=== PATIENT | female | born 1940 | race Caucasian/White ===

== ENCOUNTER 2022-04-06 13:30 | Outpatient (RCR) | payer MEDICARE, BC, SELFPAY | END 2022-05-02 23:59 | disposition home or self-care (01) | LOC: CCIC 13:30 | PROVIDERS: PCP Family Medicine; Visit Provider Internal Medicine Hematology & Oncology | DX: C50.911 Malignant neoplasm of unspecified site of right female breast (principal); Z79.811 Long term (current) use of aromatase inhibitors | CPT/HCPCS: 99212; 99214; J0702 ==

== ENCOUNTER 2023-03-17 13:57 | Outpatient (RCR) | payer MEDICARE, BC, SELFPAY | END 2023-09-13 23:59 | disposition home or self-care (01) | LOC: CCIC 13:57 | PROVIDERS: PCP Family Medicine; Visit Provider Internal Medicine Hematology & Oncology | DX: C50.911 Malignant neoplasm of unspecified site of right female breast (principal); Z90.11 Acquired absence of right breast and nipple; Z79.811 Long term (current) use of aromatase inhibitors | CPT/HCPCS: 99212; 99213; 99214 ==

== ENCOUNTER 2023-04-11 09:38 | Emergency (ER) | payer MEDICARE, BC, SELFPAY ==
[2023-04-11 09:41] VITALS: BP 101/64; PULSE 78; RESP 16; TEMP 36.2; O2SAT 92; BMI 37.2
--- NOTE | 2023-04-11 10:23 | CRLHL7_ITS ---
For Patients: As a result of the Cures Act, medical imaging exams and procedure reports are released immediately into your electronic medical record. You may view this report before your referring provider. If you have questions, please contact your health care provider. INDICATION: PAIN AND REDNESS IN LEFT LEG COMPARISON: None. TECHNIQUE: A compression venous ultrasound exam was performed of the left lower extremity using dykes-scale imaging, color Doppler and spectral Doppler analysis. FINDINGS: Sonographic imaging of the left lower extremity demonstrates normal compressibility and color Doppler venous blood flow within the common femoral vein and deep femoral vein. Long segment hypoechoic occlusive clot present throughout the greater saphenous vein from the proximal thigh to the mid calf. Within the thigh, the femoral vein is patent and compressible. At a lower level, the popliteal and posterior tibial veins also show normal compressibility and color Doppler venous blood flow. Limited imaging of the contralateral groin demonstrates a normal spectral waveform and color Doppler venous blood flow within the right common femoral vein. IMPRESSION: No evidence of deep vein thrombosis within the left lower extremity. Long segment superficial thrombus involving the left greater saphenous vein from the proximal thigh to the mid calf. Dictated by Carlos Cisneros MD @ 04/11/2023 11:14:40 AM (Electronically Signed)
--- NOTE | 2023-04-11 10:43 | ED.GENADULT ---
HPI - General Adult General Time Seen by Provider: 10:20 Date Seen: 04/11/23 Chief complaint: Lower Extremity Swelling Stated complaint: left leg possible blood clot Time Seen by Provider: 04/11/23 10:07 Source: patient Mode of arrival: ambulatory Limitations: no limitations History of Present Illness HPI narrative: Patient is an 82-year-old female history of DVT is, hypertension presenting to the emergency department for pain to her left leg. Patient states 4 days ago she noticed a red swollen area to the medial aspect of her right knee. Next day she knows it got worse and 2 days ago it was penitentiary up the medial aspect of her left thigh. It has not changed since then. Is only tender to palpation. She has been walking without issues. States she has had a blood clot in the past and was concerned she had a another 1. Denies chest pain, shortness of breath, headache, fevers, chills, weakness, abdominal pain, numbness. Related Data Home Medications Medication Instructions Recorded Confirmed alendronate 70 mg tablet 70 mg PO QWEEK 04/06/22 04/11/23 aspirin 81 mg tablet,delayed 81 mg PO QDAY 04/06/22 04/11/23 release (Adult Low Dose Aspirin) calcium carbonate 600 mg-vitamin 2 cap PO DAILY 04/06/22 04/11/23 D3 25 mcg (1,000 unit) capsule cetirizine 10 mg tablet 10 mg PO QDAY PRN 04/06/22 04/11/23 dapagliflozin propanediol 10 mg 10 mg PO QAM 04/06/22 04/11/23 tablet (Farxiga) fluticasone furoate 50 1 inh inhalation Q24H PRN 04/06/22 04/11/23 mcg/actuation blister powder for inhalation furosemide 40 mg tablet 40 mg PO QAM 04/06/22 04/11/23 magnesium oxide 400 mg PO QDAY 04/06/22 04/11/23 metoprolol succinate 25 mg 25 mg PO BID 04/06/22 04/11/23 tablet,extended release 24 hr multivitamin 1 tab PO QAM 04/06/22 04/11/23 nitroglycerin 0.4 mg sublingual 0.4 mg sublingual Q5M PRN 04/06/22 04/11/23 tablet rosuvastatin 20 mg tablet 20 mg PO QDAY 04/06/22 04/11/23 sacubitril 49 mg-valsartan 51 mg 1 tab PO BID 04/06/22 03/17/23 tablet (Entresto) triamcinolone acetonide 0.5 % 1 applic topical BID PRN 04/06/22 03/17/23 topical cream zinc gluconate 50 mg tablet 50 mg PO 2XW 04/06/22 03/17/23 Previous Rx's Medication Instructions Recorded anastrozole 1 mg tablet 1 mg PO QDAY #90 tabs 10/11/22 cephalexin 500 mg capsule 500 mg PO QID #20 caps 04/11/23 rivaroxaban 10 mg tablet 10 mg PO DAILY #45 tabs 04/11/23 Allergies Allergy/AdvReac Type Severity Reaction Status Date / Time enviromental Allergy Mild Uncoded 04/06/22 13:47 tiramine Allergy Mild Uncoded 04/11/23 09:50 Fexofenadine AdvReac depression Uncoded 04/06/22 13:47 Review of Systems Status of ROS: Reports: 10 or more systems reviewed and unremarkable except as noted in History and below PFSH PFS Medical History Malignant neoplasm of female breast (~2012) ?C50.919 - Malignant neoplasm of unspecified site of unspecified female breast (ICD-10) Surgical History Status post chemotherapy ?Z92.21 - Personal history of antineoplastic chemotherapy (ICD-10) S/P radiation therapy ?Z92.3 - Personal history of irradiation (ICD-10) S/P right mastectomy ?Z90.11 - Acquired absence of right breast and nipple (ICD-10) Social History Smoking Status: Never smoker How often do you have a drink containing alcohol: 2-4 times a month AUDIT-C Alcohol total score: 2 Non-prescribed substance use: denies use Exam Narrative: Exam Narrative: Const: Well-nourished, Well-developed, in mild distress Eyes: PERRL, no conjunctival injection, and symmetrical lids ENMT: Atraumatic external nose and ears. Moist mucous membranes. Neck: Symmetric, trachea midline, No thyromegaly. CVS: RRR, No murmurs or gallops. Peripheral pulses 2+ and equal in all extremities RESP: Unlabored respiratory effort. Clear to auscultation bilaterally. GI: Nontender/Nondistended, No rebound or guarding. MSK:Extremities w/o deformity, Normal Active ROM Skin: Warm, Dry. There is a 5-6 cm long the erythema area going from the middle for medial left thigh down to just past the knee. Palpation of her vein shows ropey like consistency Neuro: Normal Muscle tone, No focal neurological deficits. Psych: Awake, Alert, & Oriented x3. Appropriate mood and affect. Const: Vital Signs, click to edit/add: Vital Signs - 24 hr 04/11/23 09:41 Temperature 97.1 F L Pulse Rate [Left P ulse Oximeter] 78 Respiratory Rate 16 Blood Pressure [Le ft Upper Arm] 101/64 Pulse Oximetry 92 Oxygen Delivery Me thod Room Air Course Vital Signs Vital signs: Initial Vital Signs Temperature 97.1 F L 04/11/23 09:41 Temperature Source Temporal Artery Scan 04/11/23 09:41 Pulse Rate 78 04/11/23 09:41 Respiratory Rate 16 04/11/23 09:41 Blood Pressure 101/64 04/11/23 09:41 Blood Pressure Mean 76 04/11/23 09:41 Blood Pressure Position Sitting 04/11/23 09:41 Pulse Oximetry 92 04/11/23 09:41 Oxygen Delivery Method Room Air 04/11/23 09:41 Vital Signs Temperature 97.1 F L 04/11/23 09:41 Pulse Rate 78 04/11/23 09:41 Respiratory Rate 16 04/11/23 09:41 Blood Pressure 101/64 04/11/23 09:41 Pulse Oximetry 92 04/11/23 09:41 Oxygen Delivery Method Room Air 04/11/23 09:41 Temperature 97.1 F L 04/11/23 09:41 Pulse Rate 78 04/11/23 09:41 Respiratory Rate 16 04/11/23 09:41 Blood Pressure 101/64 04/11/23 09:41 Pulse Oximetry 92 04/11/23 09:41 Oxygen Delivery Method Room Air 04/11/23 09:41 Medical Decision Making MDM Narrative Medical decision making narrative: Patient is an 82-year-old female presented to the emergency department for concern for a blood clot. She states she has been having the swelling to the medial aspect of her leg for the past 4 days but has not changed in 2 days. She is only has pain to palpation to it. No chest pain or shortness of breath. She has been ambulating without issues. I did do a bedside ultrasound showing a large superficial thrombophlebitis. I can also palpate thrombosed vein on my exam. We will do a formal lower extremity ultrasound to better evaluate it at this time. The results returned showing no signs of a deep venous thrombosis but there is a large superficial venous thrombosis in the greater saphenous vein going from proximal thigh to the mid calf. Due to the size and the proximity of it we will treat her with anticoagulation. She was given Lovenox apparent in the Emergency Department. We discharged her home with rivaroxaban. Since there is erythema over the area and warmth we will treat her with Keflex for associated cellulitis. Her vital signs are stable nose no signs of pulmonary embolism or systemic infection at this time. She will be discharged home. I informed her to have close follow-up with her primary care provider so they can continue to monitor it. She states she agrees with this plan and understands her diagnosis Differential Diagnosis Differential Diagnosis: DVT, cellulitis, superficial thrombophlebitis, hematoma Medical Records Medical records reviewed: Yes I reviewed the patient's medical records Imaging Data Venous US: Attestation: I have reviewed the pertinent imaging results. Discharge Plan Discharge Clinical Impression: Superficial phlebitis and thrombophlebitis of left leg Patient Disposition: Home, Self-Care Condition: Stable Instructions: Superficial Thrombophlebitis (ED) Additional Instructions: Follow-up the primary care provider as soon as possible to help the monitor your symptoms. Take the medications we prescribed as directed. Return for new or worsening symptoms. Prescriptions: New rivaroxaban 10 mg tablet 10 mg PO DAILY Qty: 45 0RF Rx Instructions: for 35 days cephalexin 500 mg capsule 500 mg PO QID Qty: 20 0RF No Action Entresto 49-51 mg tablet 1 tab PO BID alendronate 70 mg tablet 70 mg PO QWEEK aspirin [Adult Low Dose Aspirin] 81 mg tablet,delayed release (DR/EC) 81 mg PO QDAY Hold Instructions: stopped per calcium carbonate-vitamin D3 600 mg-25 mcg (1,000 unit) capsule 2 cap PO DAILY cetirizine 10 mg tablet 10 mg PO QDAY PRN fluticasone furoate 50 mcg/actuation blister with device 1 inh inhalation Q24H PRN magnesium oxide 400 mg magnesium tablet 400 mg PO QDAY multivitamin Tablet 1 tab PO QAM triamcinolone acetonide 0.5 % cream 1 applic topical BID PRN zinc gluconate 50 mg tablet 50 mg PO 2XW Farxiga 10 mg tablet 10 mg PO QAM furosemide 40 mg tablet 40 mg PO QAM metoprolol succinate 25 mg tablet extended release 24 hr 25 mg PO BID nitroglycerin 0.4 mg tablet, sublingual 0.4 mg sublingual Q5M PRN Rx Instructions: do not exceed 3 doses per episode rosuvastatin 20 mg tablet 20 mg PO QDAY anastrozole 1 mg tablet 1 mg PO QDAY Qty: 90 3RF Follow Up/Referrals: Claudia March MD [Primary Care Provider] - Stand Alone Forms: [facility] Info Instructions
[2023-04-11] MEDS: cephALEXin 500 MG CAPSULE PO (11:52)
[2023-04-11] MEDS: ENOXAPARIN 100 MG/ML INJ SUBCUT (11:53)
== END 2023-04-11 12:02 | disposition home or self-care (01) ==
PROVIDERS: Emergency Provider Student in an Organized Health Care Education/Training Program; PCP Family Medicine
DX: I80.02 Phlebitis and thrombophlebitis of superficial vessels of left lower extremity (principal)
CPT/HCPCS: 93971; 99283; 99284; A9270; J1650

== ENCOUNTER 2024-03-06 12:41 | Outpatient (CLI) | payer MEDICARE, BC, SELFPAY ==
--- OUTSIDE RECORDS SUMMARY | 2024-03-06 12:46 | XMS_ITS | Clinical Summary ---
Author Organization [employer] [facility] [employer] [facility] Address [place], [place] [address] Care Team Providers Care Medical Reception Specialist Name Role Phone Claudia March MD Primary Care Prov ider Teddy Fitzgerald MD Unavailable [facility], [facility] Unavailable Penny Berkowitz MD Unavailable [phone] Allergies Active Allergy Reactions Criticality Noted Date Comments Fexofenadine Other - Describe In Comment Field 11/21/2008 depression Adhesive Irritation At Patch Site Low 09/10/2021 Mentioned skin irritation with standard and sensitive electrode patches. Stated sensitive patches are worse. Medications Medication Sig Dispensed Refills Start Date End Date Status zpbcbzoy-kxk-wpynk acid-vit K 400-80 mcg cap Take 2 Tabs by mouth once daily. 0 04/16/2019 Active cholecalciferol (VITAMIN D-3) 2,000 unit capsule Take 1 capsule by mouth once daily. 0 04/16/2019 Active diphenhydrAMINE (BENADRYL) 25 mg capsule Take 1 capsule by mouth every 4 hours if needed. 0 04/16/2019 Active calcium carbonate (CALTRATE) 600 mg calcium (1,500 mg) tablet Take 1 tablet by mouth 2 times daily with meals. 180 tablet 3 06/10/2020 Active aspirin (ECOTRIN) 81 mg enteric coated tablet Take 81 mg by mouth once daily with a meal. Active blood-glucose meterIndications:T ype 2 diabetes mellitus without complication, without long-term current use of insulin (HC) As directed. Dispense meter, test strips, lancets covered by pt ins. E11.9 NIDDM type II - Test 2 times/day. Reason: New diabetes 1 Each 06/15/2021 Active loratadine (Claritin) 10 mg tablet Take 1 Tablet (10 mg) by mouth once daily. 0 07/20/2021 Active Magnesium Oxide 500 mg tab Take 500 mg by mouth once daily. 0 07/20/2021 Active triamcinolone (ARISTOCORT) 0.5 % ointmentIndication s:Rash Apply topically to affected area(s) 3 times daily. As needed 30 g 1 09/15/2021 Active anastrozole (ARIMIDEX) 1 mg tablet Take 1 Tablet (1 mg) by mouth once daily. 0 12/15/2021 Active diphenhydrAMINE-ac etaminophen 25-500 mg (Tylenol PM Extra Strength) 25-500 mg tablet Take 1 Tablet by mouth at bedtime if needed. Max acetaminophen dose: 4000mg in 24 hrs. 0 06/01/2022 Active erythromycin ophthalmic ointment 0.5%Indications:Ho rdeolum externum of left lower eyelid Apply 1 Strip to left eye 6 times daily. 3.5 g 08/02/2022 Active melatonin 5 mg tab tablet Take 1 Tablet (5 mg) by mouth at bedtime if needed for Sleep. 0 11/23/2022 Active propylene glycoL (Systane Complete) 0.6 % ophthalmic solutionIndication s:Dry eye Place into the eye(s). 0 11/23/2022 Active zinc 50 mg tabletIndications: Dry eye Takes 1 tab (50 mg) 2 times a week on Tuesday and Fridays 0 11/23/2022 Active Breast ProsthesisIndicati ons:Primary cancer of right breast (HC) With 4 bras and prosthesis. For personal use. 4 Each 4 11/23/2022 Active nitroglycerin (NITROSTAT) 0.4 mg sublingual tabletIndications: ASHD (arteriosclerotic heart disease) Place 1 Tablet (0.4 mg) under the tongue every 5 minutes if needed for Chest Pain (Max 3 tablets daily. Call 911 if pain not resolved). 25 Tablet 11/23/2022 Active fluticasone (50 mcg per actuation) nasal solution (FLONASE)Indicatio ns:Sinusitis, unspecified chronicity, unspecified location SHAKE LIQUID AND USE 1 SPRAY IN EACH NOSTRIL EVERY DAY NEEDED FOR RHINITIS 48 g 3 05/12/2023 Active rivaroxaban (XARELTO) 10 mg tabletIndications: Thrombophlebitis of superficial veins of left lower extremity Take 1 Tablet (10 mg) by mouth once daily with evening meal. 90 Tablet 3 05/26/2023 Active metoprolol succinate (TOPROL XL) 25 mg Sustained-Release tabletIndications: Acute systolic heart failure (HC) TAKE 1 TABLET(25 MG) BY MOUTH TWICE DAILY 180 Tablet 2 08/21/2023 Active alendronate (FOSAMAX) 70 mg tabletIndications: Osteopenia, unspecified location,High risk for hip fracture TAKE 1 TABLET BY MOUTH ONCE A WEEK IN THE MORNING, ON AN EMPTY STOMACH WITH FULL GLASS OF WATER. DO NOT LIE DOWN FOR 1 HOUR 12 Tablet 1 09/21/2023 Active furosemide (LASIX) 40 mg tabletIndications: Acute systolic heart failure (HC) Take 1 Tablet (40 mg) by mouth every morning. Due for cardiology follow up in March 2024. 90 Tablet 1 11/16/2023 Active Farxiga 10 mg tabletIndications: Congestive heart failure, unspecified HF chronicity, unspecified heart failure type (HC) Take 1 Tablet (10 mg) by mouth once daily. 90 Tablet 1 11/30/2023 Active rosuvastatin (CRESTOR) 20 mg tabletIndications: Chronic systolic congestive heart failure (HC) TAKE 1 TABLET(20 MG) BY MOUTH AT BEDTIME 90 Tablet 01/07/2024 Active sacubitril-valsart an (ENTRESTO 49 MG-51 MG TABLET) 49-51 mg tabletIndications: Chronic systolic congestive heart failure (HC) Take 1 Tablet by mouth two times daily. Due in March 2024 for cardiology follow up. Please call [phone] to schedule. 180 Tablet 01/23/2024 Active Active Problems Problem Noted Date Diagnosed Date Type 2 diabetes mellitus wit hout complication, without long-term current use of insulin 11/23/2022 Coronary artery disease 08/14/2021 Mitral valve insufficiency 08/14/2021 History of breast cancer 06/15/2021 ASHD (arteriosclerotic heart disease) 06/09/2021 SOB (shortness of breath) 06/02/2021 Chronic systolic congestive heart failure 2020 Mitral valve prolapse 06/02/2021 Aortic valve stenosis 06/02/2021 Heart failure 04/28/2021 Aortic stenosis, moderate 03/06/2018 Overview: Mild to Moderate See 09/02/17 Echocardiogram Final Impressions: 1. Normal LV size, mildly increased wall thickness, normal function with an estimated EF of 60 - 65%. 2. Right ventricular cavity size is normal, global systolic RV function is normal. 3. The aortic valve is calcified, mild to moderate stenosis and mild regurgitation. Area 1.4cm2, MG 12mmHg, DI 0.43. 4. No other significant valvular disease. 5. Unable to estaimte PA pressure. 6. Normal estimated CVP. Cellulitis of chest wall 09/07/2017 Pneumonia 09/07/2017 Osteopenia 09/02/2014 Overview: Aug 2014. Repeat 3-5 years Adenomatous colon polyp 10/09/2013 Overview: Colonoscopy 10/2013 polyps repeat in 5 years Colonoscopy 12/2018 hyperplastic polyp, repeat in 5 years Pollen allergies 01/04/2012 Allergy, unspecified not elsewhere classified Overview: mold, dust, tree pollen, rag weed, Other lymphedema 11/02/2007 Overview: right side from mastectomy and lymphnode removal CHF (congestive heart failur e), NYHA class III, acute on chronic, systolic Resolved Problems Problem Noted Date Diagnosed Date Resolved Date Primary cancer of right breast 04/28/2021 06/15/2021 Abdominal bloating 06/06/2009 7 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 11/02/2007 09/07/2017 Overview: rt side Encounters Date Type Department Care Team Description 01/22/2024 Refill [facility] [address] [place] [address] [address] [facility] [place] [place] [address] Rae Bueno, SHIMA Refill Request (Entresto 49 Mg-51 Mg Tablet) 01/06/2024 Refill [facility] [address] [place] [address] Claudia March MD Refill Request (Rosuvastatin) from Last 3 Months Immunizations Name Administration Dates Next Due COVID-19 vaccine (Electrochaea-Bio NTech 30mcg/0.3mL) 12YO+ BIVALENT PF, MDV 06/30/2022 COVID-19 vaccine (Pfizer-Bio NTech 30mcg/0.3mL) PF, MDV 12/09/2020,11/18/2020 Hepatitis A (Adult) 03/11/2006,08/24/2005 Influenza A (H1N1), Inactiva tra (Age >=3 Years) 08/26/2009,07/27/2009 Influenza, High-dose Inactivated 07/12/2018,01/2015 Influenza, High-dose Quadriv alent Inactivated 07/09/2022,07/08/2021,07/28/2020 Influenza, IIV3 (Age 6-35 mos) 07/05/2012,2009 Influenza, IIV3 (Age >=3 years) 07/07/2009,07/17,07/15/2004 Influenza, Inactivated IIV3 (Age 65+ Years) Preserv Free 06/08/2019,06/23/2017 Pneumococcal Poly,23-Valent (Pneumovax) 07/09/20 09,08/28/2003 Pneumococcal conj 13-Valent (Prevnar 13) 017 Td (Age >=7 Years) 04/11/2003,01/19/1994 Tdap 12/31/2022,01/04/2012 Typhoid (oral) 08/24/2005 Zoster (Shingrix-RZV, recombinant) 09/14/2019, Zoster (Zostavax-ZVL, live) 11/21/2008 Family History Medical History Relation Name Comments Stroke Brother Good Health Daughter Diabetes Father Stroke Father Alzheimer's disease Mother alzheime r's Hypertension Mother Osteoporosis Mother Stroke Mother Arthritis Sister 1 Christin RA Diabetes Sister 1 Christin Good Health Sister 2 Zaira laird veins Good Health Son Relation Name Status Comments Brother Daughter Father Mother Sister 1 Christin Sister 2 Zaira Son Social History Tobacco Use Types Packs/Day Years Used Date Smoking Tobacco: Never Smokeless Tobacco: Never Tobacco Cessation:Counseling Given: Yes Alcohol Use Standard Drinks/Week Comments Yes 0 (1 standard drink = 0.6 oz pur e alcohol) one to two times per month PHQ-2 Answer Date Recorded PHQ-2 TOTAL SCORE 0 11/23/2022 Social Connections Answer Date Recorded Frequency of Communication with Friends and Fami ly Not on file 07/03/2023 Financial Resource Strain Answer Date R ecorded Difficulty of Paying Living Expenses 3 06/30/2022 Difficulty of Paying Living Expenses Not on file 06/30/2022 Food Insecurity Answer Date Recorded Worried About Running Out of Food in the Last Ye ar 1 06/30/2022 Transportation Needs Answer Date Record ed Lack of Transportation (Medical) 1 06/30/2022 Housing Stability Answer Date Recorded Unable to Pay for Housing in the Last Year 1 06/30/2022 Sex and Gender Information Value Date Recorded Sex Assigned at Not on file Gender Identity Not on file Sexual Orientation Not on file Obstetrics History Para Term AB IAB SAB Ectopic Multiple Livin g Live Births 2 2 2 Date Outcome GA Total Labor Labor/2nd/3rd Weight Sex Delivery Anes PTL Keren A1 A5 Name Cl in Para Para Last Filed Vital Signs Vital Sign Reading Time Taken Comments Blood Pressure 92/59 05/26/2023 12:08 PM CDT Pulse 80 05/26/2023 12:08 PM CDT Temperature 36.4 ??C (97.5 ??F) 06/09/2021 12:15 PM C DT Respiratory Rate 18 06/15/2021 11:50 AM CDT Oxygen Saturation 93% 05/26/2023 12:08 PM CDT Inhaled Oxygen Concentration - - Weight 98.9 kg (218 lb) 05/26/2023 12:08 PM CDT Height 160 cm (5' 2.99) 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 Body Mass Index 38.63 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 Plan of Treatment Upcoming Encounters Date Type Department Care Team (Late st Contact Info) Description 03/07/2024 10:20 AM CDT Office Visit [facility] [address] [place] [address] Claudia March MD [address] [place] [address] 03/29/2024 10:00 AM CDT Office Visit [facility] [address] [place] [address] 04/13/2024 2:30 PM CDT Office Visit [facility] [address] [place] [address] Scott Lux MD [id number] [place] [address] Health Maintenance Due Date Last Done Comments COVID-19 vaccine series ( season) 2023 06/30/2022, 01/08/2022, 07/03/2021, Additional history exists BMI (ht and wt on same day) for age 18+ 11/23/2023 11/23/2022, 11/23/2022, 06/01/2022, Additional history exists Depression screening for age 12+ 11/23/2023 11/23/2022, 11/23/2022, 11/23/2022, Additional history exists Medicare Wellness for age 65+ 11/24/2023, 09/15/2021, 06/16/2020, Additional history exists Influenza for age 65+ 06/03/2024 07/09/2022 , 07/08/2021, 07/28/2020, Additional history exists Tetanus booster 12/31/2032 12/31/2022, 04/0 12/2011, 04/11/2003, Additional history exists Pneumococcal series for age 65+ Completed 07/22/2017, 07/09/2009, 08/28/2003 DEXA/DXA scan for age 65+ Completed 2018, 08/22/2014, 11/02/2007 Zoster (shingles) series for age 50+ Completed 09/14/2019, 06/08/2019, 11/21/2008 Tdap Completed 12/31/2022, 01/04/2012 Procedures Procedure Name Priority Date/Time Associated Diagnosis Comments XR DXA BONE DENSITY 2 SITES AXIAL Routine 06/07/2019 2:01 PM CDT Asymptomatic postmenopausal state from Last 3 Months or Most Recently Relevant to Health Maintenance Results * (ABNORMAL) XR DXA BONE DENSITY 2 SITES AXIAL (06/07/2019 2:01 PM CDT) Anatomical Region Laterality Modality Spine, HIPS, HIPL, HIPR Other Narrative 06/18/2019 4:58 PM CDT Please see scanned document for results of this study. Claudia March MD DEXA from Last 3 Months or Most Recently Relevant to Health Maintenance Advance Directives Documents on File Type Date Recorded Patient Senior Linux Unix Administrator Expl anation Healthcare Directive 04/26/2012 12:50 PM H [facility], [facility], 04/04/12 * Full Code (Latest Code Status on File) Date Activated Date Inactivated Comments 06/05/2021 10:37 AM 06/09/2021 6:17 PM Question Answer Comments Code Status Discussion: Discussed * Full Code Date Activated Date Inactivated Comments 09/07/2017 12:25 AM 09/09/2017 4:16 PM Care Teams Medical Reception Specialist Relationship Specialty Start Date End Date Claudia March MD [address] [place] [address] PCP - General Family Practice 04/04/18 Teddy Fitzgerald MD [address] [place] [address] Cardiology - Interventional 06/19/21 [facility], [facility] [address] [place] [address] 06/19/21 Penny Berkowitz MD [address] [place] [address] Oncology Oncology 09/15/21
--- NOTE | 2024-03-06 13:00 | CRLHL7_ITS ---
For Patients: As a result of the Century Cures Act, medical imaging exams and procedure reports are released immediately into your electronic medical record. You may view this report before your referring provider. If you have questions, please contact your health care provider. BILATERAL SCREENING MAMMOGRAM WITH COMPUTER-AIDED DETECTION AND TOMOSYNTHESIS TECHNIQUE: CC and MLO views were obtained. These mammographic images have been obtained using full-field digital technique. These mammographic images were interpreted with the benefit of computer-aided detection. Breast Tomosynthesis was used in this interpretation. COMPARISON FILM: 02/14/23, 01/11/22, 12/02/20. FINDINGS: The breasts are heterogeneously dense, which may obscure small masses IMPRESSION: There is no radiographic evidence for malignancy. ASSESSMENT: BI-RADS Category 1: Negative RECOMMENDATION: Routine screening mammogram in 1 year. A lay language report of this examination will be provided to the patient. Carlos Cisneros M.D. Diagnostic Radiologist [email or web address] Transcribed: 2:45 p.mRalph chase/Dictated by: Carlos Cisneros MD @ 03/09/2024 1:30:00 PM (Electronically Signed)
== END 2024-03-06 12:42 | disposition home or self-care (01) ==
LOC: MAMMO 12:43
PROVIDERS: PCP Family Medicine; Visit Provider Family Medicine
DX: Z12.31 Encounter for screening mammogram for malignant neoplasm of breast (principal); R92.2 Inconclusive mammogram
CPT/HCPCS: 77063; 77067

== ENCOUNTER 2024-04-02 13:28 | Outpatient (RCR) | payer MEDICARE, BC, SELFPAY | END 2024-09-29 23:59 | disposition home or self-care (01) | LOC: CCIC 13:28 | PROVIDERS: PCP Family Medicine; Visit Provider Internal Medicine Hematology & Oncology | DX: C50.911 Malignant neoplasm of unspecified site of right female breast (principal); Z90.11 Acquired absence of right breast and nipple; Z79.811 Long term (current) use of aromatase inhibitors; M85.80 Other specified disorders of bone density and structure, unspecified site | CPT/HCPCS: 99214; G0463 ==

== ENCOUNTER 2024-06-05 10:05 | Outpatient (CLI) | payer MEDICARE, BC, SELFPAY ==
--- OUTSIDE RECORDS SUMMARY | 2024-06-05 10:07 | XMS_ITS | Clinical Summary ---
Author Organization [employer] [facility] Address [place], [place] [address] Care Team Providers Care Shipping Manager Name Role Phone Clinic, [place] Unavailable Claudia March MD Primary Care Prov ider Scott Gongora MD Unavailable Allergies Active Allergy Reactions Criticality Noted Date Comments Ibuprofen Intolerance-Can't Take 03/07/2024 Heart contraindicated Fexofenadine Other - Describe In Comment Field 11/21/2008 depression Adhesive Irritation At Patch Site Low 09/10/2021 Mentioned skin irritation with standard and sensitive electrode patches. Stated sensitive patches are worse. Medications Medication Sig Dispensed Refills Start Date End Date Status [id number]-uhd ic acid-vit K 400-80 mcg cap Take 2 Tabs by mouth once daily. 0 9 Active cholecalciferol (VITAMIN D-3) 2,000 unit capsule Take 1 capsule by mouth once daily. 0 9 Active calcium carbonate (CALTRATE) 600 mg calcium (1,500 mg) tablet Take 1 tablet by mouth 2 times daily with meals. 180 tablet 3 0 Active blood-glucose meterIndications :Type 2 diabetes mellitus without complication, without long-term current use of insulin (HC) As directed. Dispense meter, test strips, lancets covered by pt ins. E11.9 NIDDM type II - Test 2 times/day. Reason: New diabetes 1 Each 1 Active loratadine (Claritin) 10 mg tablet Take 1 Tablet (10 mg) by mouth once daily. 0 1 Active Magnesium Oxide 500 mg tab Take 500 mg by mouth once daily. 0 1 Active triamcinolone (ARISTOCORT) 0.5 % ointmentIndicati ons:Rash Apply topically to affected area(s) 3 times daily. As needed 30 g 1 1 Active melatonin 5 mg tab tablet Take 1 Tablet (5 mg) by mouth at bedtime if needed for Sleep. 0 3 Active propylene glycoL (Systane Complete) 0.6 % ophthalmic solutionIndicati ons:Dry eye Place into the eye(s). 0 3 Active zinc 50 mg tabletIndication s:Dry eye Takes 1 tab (50 mg) 2 times a week on Tuesday and Fridays 0 3 Active Breast ProsthesisIndica tions:Primary cancer of right breast (HC) With 4 bras and prosthesis. For personal use. 4 Each 4 3 Active nitroglycerin (NITROSTAT) 0.4 mg sublingual tabletIndication s:ASHD (arterioscleroti c heart disease) Place 1 Tablet (0.4 mg) under the tongue every 5 minutes if needed for Chest Pain (Max 3 tablets daily. Call 911 if pain not resolved). 25 Tablet 3 Active fluticasone (50 mcg per actuation) nasal solution (FLONASE)Indicat ions:Sinusitis, unspecified chronicity, unspecified location SHAKE LIQUID AND USE 1 SPRAY IN EACH NOSTRIL EVERY DAY NEEDED FOR RHINITIS 48 g 3 3 Active rosuvastatin (CRESTOR) 20 mg tabletIndication s:Chronic systolic congestive heart failure (HC) Take 1 Tablet (20 mg) by mouth at bedtime. 90 Tablet 3 4 Active sacubitril-valsa rtan (ENTRESTO 49 MG-51 MG TABLET) 49-51 mg tabletIndication s:Chronic systolic congestive heart failure (HC) TAKE 1 TABLET BY MOUTH TWICE DAILY 180 Tablet 3 4 Active furosemide (LASIX) 40 mg tabletIndication s:Acute systolic heart failure (HC) Take 1 Tablet (40 mg) by mouth once daily in the morning. 90 Tablet 5 4 Active metoprolol succinate (TOPROL XL) 25 mg Sustained-Releas e tabletIndication s:Acute systolic heart failure (HC) Take 1 Tablet (25 mg) by mouth once daily. 90 Tablet 2 4 Active rivaroxaban (XARELTO) 10 mg tabletIndication s:Thrombophlebit is of superficial veins of left lower extremity Take 1 Tablet (10 mg) by mouth once daily with evening meal. 90 Tablet 2 4 Active Farxiga 10 mg tabletIndication s:Congestive heart failure, unspecified HF chronicity, unspecified heart failure type (HC) Take 1 Tablet (10 mg) by mouth once daily. 90 Tablet 5 4 Active furosemide (LASIX) 40 mg tabletIndication s:Acute systolic heart failure (HC) Take 1 Tablet (40 mg) by mouth every morning. Due for cardiology follow up in March 2024. 90 Tablet 1 4 05/15/20 24 Discontinued Farxiga 10 mg tabletIndication s:Congestive heart failure, unspecified HF chronicity, unspecified heart failure type (HC) Take 1 Tablet (10 mg) by mouth once daily. 90 Tablet 1 4 05/29/20 24 Discontinued metoprolol succinate (TOPROL XL) 25 mg Sustained-Releas e tabletIndication s:Acute systolic heart failure (HC) Take 1 Tablet (25 mg) by mouth once daily. 180 Tablet 3 4 05/20/20 24 Discontinued(*Av ailability/Formu bibi change/Cost of medication) rivaroxaban (XARELTO) 10 mg tabletIndication s:Thrombophlebit is of superficial veins of left lower extremity Take 1 Tablet (10 mg) by mouth once daily with evening meal. 90 Tablet 3 4 05/20/20 24 Discontinued(*Av ailability/Formu bibi change/Cost of medication) predniSONE (DELTASONE) 20 mg tabletIndication s:DDD (degenerative disc disease), lumbar,Lumbar facet arthropathy,Troc hanteric bursitis of right hip Take 1 Tablet (20 mg) by mouth two times daily with meals for 4 days, THEN 1 Tablet (20 mg) once daily with a meal for 4 days. 12 Tablet 4 05/08/20 24 Active Problems Problem Noted Date Diagnosed Date [...] Encounters Date Type Department Care Team Description 05/27/2024 Refill [facility] [address] [facility] [address] [place] [address] Rae Bueno NP Refill Request (Farxiga) 05/22/2024 Refill [facility] [address] [place] [address] Claudia March MD Refill Request (Alendronate) 05/17/2024 11:30 AM CDT Office Visit [facility] [address] [place] [address] Claudia March MD Derm Problem (Wart treatment ) 05/17/2024 Travel 05/17/2024 Refill [facility] [address] [place] [address] Claudia March MD Refill Request (Metoprolol Succinate, Xarelto) 05/15/2024 Refill [facility] [address] [place] [address] [place] [address] Scott Gongora MD Refill Request (Furosemide) 05/14/2024 Telephone [facility] [address] [place] [address] Nickolas Allison MD Questions 05/03/2024 11:30 AM CDT Office Visit [facility] [address] [place] [address] Claudia March MD Follow Up (warts) 05/03/2024 Travel 05/02/2024 Orders Only [facility] [address] [place] [address] Nickolas Allison MD 1 scan: (1-Ord) RAYUS, LUMBAR SPINE W/O, 04/30/2024 04/30/2024 9:45 AM CDT Ancillary Procedure [facility] [address] [place] [address] 04/30/2024 9:30 AM CDT Ancillary Procedure [facility] [address] [place] [address] 04/30/2024 9:00 AM CDT Office Visit [facility] [address] [place] [address] Nickolas Allison MD Musculoskeletal Problem (Consult low back pain, per Dr. March) 04/30/2024 Travel 04/24/2024 Refill [facility] [address] [facility] [address] [place] [address] Scott Gongora MD Refill Request (Entresto 49 Mg-51 Mg Tablet) 04/17/2024 9:30 AM CDT Orders Only [place] [address] [address] [address] Lab, [place] [facility] 04/17/2024 Travel 04/13/2024 2:30 PM CDT Office Visit [facility] [address] [place] [address] Scott Gongora MD Follow Up (Aortic valve stenosis/Echo 03/29 ) 04/12/2024 9:50 AM CDT Office Visit [facility] [address] [place] [address] Claudia March MD Derm Problem (Plantar warts ) 04/12/2024 Travel 03/29/2024 10:00 AM CDT Ancillary Procedure [facility] [address] [place] [address] 03/29/2024 Travel 03/21/2024 Orders Only [facility] [place] [address] Claudia March MD <No scans attached> 03/13/2024 9:30 AM CDT Ancillary Procedure [facility] [address] [place] [address] 03/13/2024 Travel 03/07/2024 10:20 AM CDT Office Visit [facility] [address] [place] [address] Claudia March MD Medicare ANNUAL (subsequent) Visit (83 yo female); Sleep Problem (/) 03/07/2024 Travel 03/06/2024 Orders Only [facility] Scanner 1 scan: (1-Ord) [facility], MM SCRREENING MAMMO UNILAT LT, 03/06/2024 from Last 3 Months Immunizations Name Administration Dates Next Due COVID-19 vaccine (Pfizer-Bio NTech 30mcg/0.3mL) 12YO+ BIVALENT PF, MDV 06/30/2022 [...] 1 Christin Good Health Sister 2 Zaira vericose veins Good Health Son Relation Name Status [...] Answer Date Recorded PHQ-2 TOTAL SCORE 0 03/07/2024 Social Connections Answer Date Recorded Frequency of Communication with Friends and Fami ly 0 03/07/2024 Financial Resource Strain Answer Date R ecorded Difficulty of Paying Living Expenses 3 03/07/2024 Difficulty of Paying Living Expenses Not on file 03/07/2024 Food Insecurity Answer Date Recorded Worried About Running Out of Food in the Last Ye ar 1 03/07/2024 Transportation Needs Answer Date Record ed Lack of Transportation (Medical) 1 03/07/2024 Housing Stability Answer Date Recorded Unable to Pay for Housing in the Last Year 1 03/07/2024 Sex and Gender Information Value Date Recorded Sex Assigned at Not on file Gender Identity Not on file Sexual Orientation Not on file Obstetrics History Para Term AB IAB SAB Ectopic Multiple Livin g Live Births 2 2 2 Date Outcome GA Total Labor Labor/2nd/3rd Weight Sex Type Anes PTL Keren A1 A5 Name Clin Para Para Last Filed Vital Signs Vital Sign Reading Time Taken Comments Blood Pressure 112/75 05/17/2024 11:26 AM CDT Pulse 64 05/17/2024 11:26 AM CDT Temperature 36.7 ??C (98 ??F) 04/30/2024 8:51 AM CDT Respiratory Rate 18 06/15/2021 11:50 AM CDT Oxygen Saturation 95% 05/17/2024 11:26 AM CDT Inhaled Oxygen Concentration - - Weight 99.3 kg (219 lb) 05/17/2024 11:26 AM CDT Height 160 cm (5' 3) 03/07/2024 10:35 AM CDT Body Mass Index 38.79 03/07/2024 10:35 AM CDT Plan of Treatment Upcoming Encounters Date Type Department Care Team (Late st Contact Info) Description 06/05/2024 10:40 AM CDT Office Visit [facility] [address] [place] [address] Nickolas Allison MD [address] [place] [address] Arrived 06/06/2024 9:30 AM CDT Office Visit [facility] [address] [place] [address] Claudia March MD [address] [place] [address] Health Maintenance Due Date Last Done Comments RSV vaccine for adults or (1 - 1-dose 60+ series) 2001 COVID-19 vaccine series ( season) 2024 07/08/2023, 06/30/2022, 01/08/2022, Additional history exists Influenza for age 65+ 06/03/2024 07/09/2022 , 07/08/2021, 07/28/2020, Additional history exists BMI (ht and wt on same day) for age 18+ 03/07/2025 03/07/2024, 11/23/2022, 11/23/2022, Additional history exists Depression screening for age 12+ 03/07/2025 03/07/2024, 11/23/2022, 11/23/2022, Additional history exists Medicare Wellness for age 65+ 03/08/2025, 11/23/2022, 09/15/2021, Additional history exists Tetanus booster 12/31/2032 12/31/2022, 04/0 12/2011, 04/11/2003, Additional history exists Pneumococcal series for age 65+ Completed 07/22/2017, 07/09/2009, 08/28/2003 Zoster (shingles) series for age 50+ Completed 09/14/2019, 06/08/2019, 11/21/2008 Tdap Completed 12/31/2022, 01/04/2012 DEXA/DXA scan for age 65+ Completed 2023, 06/07/2019, 08/22/2014, Additional history exists Procedures Procedure Name Priority Date/Time Associated Diagnosis Comments AMB EPIDURAL STEROID INJECTION Routine 06/05/2024 8:20 AM CDT DDD (degenerative disc disease), lumbar Lumbar radiculopathy Lumbar facet arthropathy XR SPINE LUMBAR 2 VIEWS Routine 04/30/2024 9:41 AM CDT Back pain without radiation Lumbar facet arthropathy XR HIP 1 VIEW W PELVIS RIGHT Routine 04/30/2024 9:41 AM CDT Back pain without radiation Lumbar facet arthropathy MR SPINE LUMBAR WO Routine 04/30/2024 12 :00 AM CDT DDD (degenerative disc disease), lumbar Lumbar facet arthropathy Trochanteric bursitis of right hip URINE ALBUMIN TO CREATININE RATIO, RANDOM Routine 04/17/2024 9:23 AM CDT Type 2 diabetes mellitus without complication, without long-term current use of insulin (HC) HEMOGLOBIN A1C Routine 04/17/2024 9:23 AM CDT Type 2 diabetes mellitus without complication, without long-term current use of insulin (HC) ECHO TTE COMPLETE WO CONTRAST Routine 03/29/2024 10:33 AM CDT Aortic valve stenosis, etiology of cardiac valve disease unspecified XR DXA BONE DENSITY 2 SITES AXIAL Routine 03/13/2024 9:48 AM CDT Post-menopausal LIPID PANEL W REFLEX MEASURED LDL Routine 03/07/2024 11:58 AM CDT Acute systolic heart failure (HC) BASIC METABOLIC PANEL Routine 03/07/2024 11:58 AM CDT Type 2 diabetes mellitus without complication, without long-term current use of insulin (HC) SCAN-MAMMOGRAPHY REPORT 03/06/2024 12:00 AM CDT from Last 3 Months Results * XR SPINE LUMBAR 2 VIEWS (04/30/2024 9:41 AM CDT) Anatomical Region Laterality Modality LUMBAR SPINE Computed Radiogr aphy 04/30/2024 2:10 PM CDT Impressions 04/30/2024 2:10 PM CDT Multilevel degenerative disc disease lumbar spine. Dictated by Carlos Cisneros MD @ 04/30/2024 2:10:45 PM (Electronically Signed) Narrative 04/30/2024 2:10 PM CDT For Patients: ??As a result of the Cures Act, medical imaging exams and procedure reports are released immediately into your electronic medical record. ??You may view this report before your referring provider. ??If you have questions, please contact your health care provider. INDICATION: Lumbar facet arthropathy TECHNIQUE: 3-view lumbar spine. COMPARISON: CT abdomen and pelvis 02/08/2014 FINDINGS: No vertebral body compression fracture. Disc space narrowing and spurring with vacuum disc phenomena at L3-4 and L4-5. Vascular calcifications. Facet degeneration lower lumbar spine. Anterior spurring L1-2 and L2-3. SI joints maintained. Chronic hypertrophic spur at the right medial pubic bone. Procedure Note Carlos Cisneros MD - 04/30/2024 For Patients: As a result of the Cures Act, medical imagingexams and procedure reports are released immediately into your electronicmedical record. You may view this report before your referring provider.If you have questions, please contact your health care provider. INDICATION: Lumbar facet arthropathy TECHNIQUE: 3-view lumbar spine. COMPARISON: CT abdomen and pelvis 02/08/2014 FINDINGS: No vertebral body compression fracture. Disc space narrowing and spurringwith vacuum disc phenomena at L3-4 and L4-5. Vascular calcifications.Facet degeneration lower lumbar spine. Anterior spurring L1-2 and L2-3. SIjoints maintained. Chronic hypertrophic spur at the right medial pubicbone. IMPRESSION: Multilevel degenerative disc disease lumbar spine. Dictated by Carlos Cisneros MD @ 04/30/2024 2:10:45 PM (Electronically Signed) Nickolas Allison MD GENERAL IMAGING * XR HIP 1 VIEW W PELVIS RIGHT (04/30/2024 9:41 AM CDT) Anatomical Region Laterality Modality HIPS, HIPR, Pelvis Computed Radi ography 04/30/2024 2:06 PM CDT Narrative 04/30/2024 2:06 PM CDT For Patients: ??As a result of the Cures Act, medical imaging exams and procedure reports are released immediately into your electronic medical record. ??You may view this report before your referring provider. ??If you have questions, please contact your health care provider. Indication: Back pain without radiation Technique: Pelvis and right hip 2 views Comparison: CT abdomen and pelvis 02/08/2014 Findings: Spurring associated with the greater trochanters bilaterally. Chronic changes at the symphysis pubis. Minimal degenerative changes at both hips. Degenerative disc disease L4-5. No fracture. Impression: Mild degenerative joint disease right hip. Dictated by Carlos Cisneros MD @ 04/30/2024 2:06:06 PM (Electronically Signed) Procedure Note Carlos Cisneros MD - 04/30/2024 For Patients: As a result of the Cures Act, medical imagingexams and procedure reports are released immediately into your electronicmedical record. You may view this report before your referring provider.If you have questions, please contact your health care provider. Indication: Back pain without radiation Technique: Pelvis and right hip 2 views Comparison: CT abdomen and pelvis 02/08/2014 Findings: Spurring associated with the greater trochanters bilaterally. Chronicchanges at the symphysis pubis. Minimal degenerative changes at both hips.Degenerative disc disease L4-5. No fracture. Impression: Mild degenerative joint disease right hip. Dictated by Carlos Cisneros MD @ 04/30/2024 2:06:06 PM (Electronically Signed) Nickolas Allison MD GENERAL IMAGING * MR SPINE LUMBAR WO (04/30/2024 12:00 AM CDT) Anatomical Region Laterality Modality Spine, LUMBAR SPINE Magnetic Res onance Nickolas Allison MD MR * (ABNORMAL) URINE ALBUMIN TO CREATININE RATIO, RANDOM (04/17/2024 9:23 AM CDT) ALB RAND URINE 93.4 mg/L 04/17/2024 8:24 PM CDT [facility] CREATININE,URIN E 1.90 g/L 04/17/2024 8:24 PM CDT [facility] ALBUMIN TO CREATININE RATIO,RAND UR 49.2(H) <30.0 mg/g creat 04/17/2024 8:24 PM CDT [facility] Urine URINE SPECIMEN / Unknown Non-Blood / Unknown 04/17/2024 9:23 AM CDT 04/17/2024 9:25 AM CDT Narrative [facility] - 04/17/2024 8:24 PM CDT If Albumin to Creatinine Ratio is elevated, consider the following: ? Elevations seen with incipient nephropathy associated ?? with diabetes mellitus or hypertension. Stress, exercise,hematuria, ?? and urinary tract infection may also produce elevated results. If clinically indicated, confirm with ?24 Hour Albumin to Creatinine Ratio. ?? Claudia March MD URINE [facility] [address] [place] [address], * (ABNORMAL) HEMOGLOBIN A1C MONITORING (POCT) (04/17/2024 9:23 AM CDT) HEMOGLOBIN A1C MONITORING (POCT) 7.1(H) <=6.4 % 04/17/2024 9:35 AM CDT [facility] Blood BLOOD SPECIMEN / Unknown Venipuncture / Unknown 04/17/2024 9:23 AM CDT 04/17/2024 9:25 AM CDT Narrative [facility] - 04/17/2024 9:35 AM CDT ? (<=6.9%) ? Indicates good control ? (7.0% to 7.9%) ? Indicates fair control ? (>=8.0%) ? Indicates poor control ?? NOTE: ??These thresholds are guidelines and ?individual targets may vary. Falsely low levels may be seen with: Recent Transfusion, Recent Significant Blood Loss, Hemolytic Diseases, or Falsely elevated levels may be seen with: Untreated Anemias, Splenectomy ? Claudia March MD CHEMISTRY [facility] [address] [place] [address], * ECHO TTE COMPLETE WO CONTRAST (03/29/2024 10:33 AM CDT) AORTIC VALVE MEAN PG 10 mmHg EJECTION FRACTION 69 % LVEDD 4.0 cm EJECTION FRACTION 60 - 65% Anatomical Region Laterality Modality Ultrasound 03/29/2024 10:0 4 AM CDT Narrative 03/29/2024 10:52 AM CDT ECHOCARDIOGRAM ELEAZAR LOYD ?Accession#: ?? [id number] : ?1940 83 years Study Date: ?? 03/29/2024 10:04:46 AM Gender: F ? BP: ? 132/59 mmHg Height: 160.00 cm ? BSA: ?1.94 m? ? ? Weight: 91.00 kg ?Tech: ? MJW ?Referring MD: SCOTT GONGORA Site: ? [facility] [place] Location: Mobile-OP Patient Location: Outpatient. Procedure: 2D, Color Doppler and Spectral Doppler. Indication for study: Aortic valve stenosis, etiology of cardiac valve disease unspecified Cardiac Rhythm: Regular.Study quality: Fair. Final Impressions: 1. Normal LV size, normal wall thickness, normal global systolic function with an estimated EF of 60 - 65%. 2. Right ventricular cavity size is normal, global systolic RV function is normal. 3. The aortic valve is trileaflet and sclerotic, minimal stenosis and mild regurgitation. Mean gradient ~ 10mmHg, DI 0.54. 4. The mitral valve is sclerotic, trace mitral regurgitation. Chamber Sizes and Function Normal left ventricular size, normal wall thickness, normal global systolic function with an estimated EF of 60 - 65%. Left atrial size is normal. Right ventricular cavity size is normal, global systolic RV function is normal. The right atrium is normal. Right atrial volume index is 19 ml/m? ? ?. Right atrial area is 15 cm? ? ?. The pulmonary artery is not well visualized. The sinus of Valsalva is normal sized. The ascending aorta is normal sized. Valves, RV Pressures and Diastolic Function The aortic valve is trileaflet and sclerotic, mild stenosis and mild regurgitation. The mitral valve is sclerotic, trace mitral regurgitation. Mitral annular calcification is present. Spectral Doppler shows Grade 1 pattern of LV diastolic filling. The tricuspid valve is normal in structure. Tricuspid regurgitation is trace regurgitation. Unable to assess right ventricular systolic pressure. The pulmonic valve is not well visualized. Trace pulmonary regurgitation. Masses, Effusion, Shunts There is no pericardial effusion. The inferior vena cava is normal sized, respiratory size variation greater than 50%. No left to right shunting was detected by limited color flow Doppler interrogation of the interatrial septum. MEASUREMENTS AND CALCULATIONS 2-D Measurements and LV Function: LVID (d) 4.0 cm LV FS% (2D) ?? 28 % LVID (s) 2.9 cm LVOT diameter 2.2 cm IVS (d) ??1.0 cm HR ?65 bpm LVPW (d) 1.0 cm LA Vol index ??27 ml/m2 Ao Sinus 3.3 cm RA Vol index ??19 ml/m2 Asc Ao ?? 3.4 cm RA area ? 15 cm? ? ? LA ? 4.0 cm RV Max 4C (d) 3.2 cm Diastology: Mitral ?Tissue Doppler E Peak 0.5 m/s ??e', Septum ? 0.08 m/s A Peak 0.9 m/s ??e', Lateral ?0.07 m/s E/A ?0.5 ?E/e' Average ?? 6.81 DT ? 331 msec Aortic Valve: Vmax ? 2.0 m/s ??BRI (V) ?? 2.00 cm? AI P 1/2 480 msec VTI ?0.42 m ?? BRI (I) ?? 2.01 cm? AI Vol ?? 9 ml LVOT V max ? 1.1 m/s ??Max PG ?16 mmHg LVOT VTI ? 0.23 m ?? Mean PG ?? 10 mmHg SV ? 84 ml ?Dim Index 0.54 SV index ? 44 ml/m? ? ? CO ?5.5 l/min AV Ejection Time 0.29 sec CI ?2.8 l/min/m? ? ? AV Flow Rate ? 289 ml/s Mitral Valve: MVA ?2.3 cm? ? ? MV P 1/2 96 msec Tricuspid Valve and estimated PA pressures: TAPSE 2.1 cm Pulmonic Valve: PV AT 78 msec . This study was interpreted by an [facility] accredited facility. ??Final ?? Procedure Note Carlos Alaniz MD - 03/29/2024 ECHOCARDIOGRAM ELEAZAR LOYD : 1940 83 years Study Date: 03/29/2024 10:04:46 AM Gender: F BP: 132/59 mmHg Height: 160.00 cm BSA: 1.94 m? ? ? Weight: 91.00 kg Tech: BLANQUITA Referring MD: SCOTT GONGORA Site: [facility] [place] Location: Mobile-OP Patient Location: Outpatient. Procedure: 2D, Color Doppler and Spectral Doppler. Indication for study: Aortic valve stenosis, etiology of cardiac valvedisease unspecified Cardiac Rhythm: Regular.Study quality: Fair. Final Impressions: 1. Normal LV size, normal wall thickness, normal global systolic functionwith an estimated EF of 60 - 65%. 2. Right ventricular cavity size is normal, global systolic RV functionis normal. 3. The aortic valve is trileaflet and sclerotic, minimal stenosis andmild regurgitation. Mean gradient ~ 10mmHg, DI 0.54. 4. The mitral valve is sclerotic, trace mitral regurgitation. Chamber Sizes and Function Normal left ventricular size, normal wall thickness, normal globalsystolic function with an estimated EF of 60 - 65%. Left atrial size isnormal. Right ventricular cavity size is normal, global systolic RVfunction is normal. The right atrium is normal. Right atrial volume indexis 19 ml/m? ? ?. Right atrial area is 15 cm? ? ?. The pulmonary artery is notwell visualized. The sinus of Valsalva is normal sized. The ascendingaorta is normal sized. Valves, RV Pressures and Diastolic Function The aortic valve is trileaflet and sclerotic, mild stenosis and mildregurgitation. The mitral valve is sclerotic, trace mitral regurgitation.Mitral annular calcification is present. Spectral Doppler shows Grade 1pattern of LV diastolic filling. The tricuspid valve is normal instructure. Tricuspid regurgitation is trace regurgitation. Unable toassess right ventricular systolic pressure. The pulmonic valve is not wellvisualized. Trace pulmonary regurgitation. Masses, Effusion, Shunts There is no pericardial effusion. The inferior vena cava is normal sized,respiratory size variation greater than 50%. No left to right shunting wasdetected by limited color flow Doppler interrogation of the interatrialseptum. MEASUREMENTS AND CALCULATIONS 2-D Measurements and LV Function: LVID (d) 4.0 cm LV FS% (2D) 28 % LVID (s) 2.9 cm LVOT diameter 2.2 cm IVS (d) 1.0 cm HR 65 bpm LVPW (d) 1.0 cm LA Vol index 27 ml/m2 Ao Sinus 3.3 cm RA Vol index 19 ml/m2 Asc Ao 3.4 cm RA area 15 cm? ? ? LA 4.0 cm RV Max 4C (d) 3.2 cm Diastology: Mitral Tissue Doppler E Peak 0.5 m/s e', Septum 0.08 m/s A Peak 0.9 m/s e', Lateral 0.07 m/s E/A 0.5 E/e' Average 6.81 DT 331 msec Aortic Valve: Vmax 2.0 m/s BRI (V) 2.00 cm? ? ? AI P 1/2 480 msec VTI 0.42 m BRI (I) 2.01 cm? ? ? AI Vol 9 ml LVOT V max 1.1 m/s Max PG 16 mmHg LVOT VTI 0.23 m Mean PG 10 mmHg SV 84 ml Dim Index 0.54 SV index 44 ml/m? ? ? CO 5.5 l/min AV Ejection Time 0.29 sec CI 2.8 l/min/m? ? ? AV Flow Rate 289 ml/s Mitral Valve: MVA 2.3 cm? ? ? MV P 1/2 96 msec Tricuspid Valve and estimated PA pressures: TAPSE 2.1 cm Pulmonic Valve: PV AT 78 msec . This study was interpreted by an [facility] accredited facility. Final Scott Gongora MD ECHO ORD * XR DXA BONE DENSITY 2 SITES AXIAL (03/13/2024 9:48 AM CDT) Anatomical Region Laterality Modality Spine, HIPS, HIPL, HIPR Other Impressions 03/20/2024 1:28 PM CDT Normal bone density. RECOMMENDATIONS: The National Osteoporosis Foundation recommends pharmacologic treatment for patients with T-scores of -2.5 or less, patients with prior history of fragility fractures, or patients with 10-year probability of greater than 3% at hips or greater than 20% of suffering major osteoporotic fractures. Recommend continued optimization of calcium and vitamin D intake through dietary means and/or supplementation and regular exercise. Discontinue Fosamax, patient's bone density is in normal range. Repeat scan recommended in 3-5 years. ?? Valentine Stafford PA-C [facility] 03/20/2024 Narrative 03/20/2024 1:28 PM CDT ===View-only below this line=== RESULT ? For Patients: Results are automatically released to your [facility] ([employer]) account once available, in compliance with federal regulations. This means that you may see your results before your provider has had a chance to review them. Please allow 2-3 business days for your provider to comment on the results. XR DXA Bone Mineral Density (BMD) EXAM LOCATION: [address] [address] PATIENT NAME: Eleazar Loyd DATE OF : 1940 EXAM DATE: 03/13/2024 REQUESTING PROVIDER: Claudia March MD GENDER AT : female HEIGHT: 5' 3 (03/07/2024) WEIGHT: ??219 lb (03/07/2024) MENOPAUSAL STATUS: Postmenopausal RACE/ETHNICITY: White RISK FACTORS: Aromatase Inhibitors (Arimidex, etc.), Cancer Treatment, Family History of Osteoporosis, Family History of Hip Fracture (parental), and White Race CURRENT MEDICATION FOR BONE LOSS: Alendronate (Fosamax) INDICATION: Post-Menopause COMPARISON DATE(S): 2018 DXA scans are compared to prior studies for a patient only when the two (or more) studies were performed on the same scanner. It is not possible to compare data generated on one scanner to data from another because there are not standards in DXA equipment. This applies even if the two scanners are made by the same organic chemistry teacher. PROCEDURE: Dual-energy x-ray absorptiometry performed with routine technique. Reporting is completed in the form of a T-score. The T-score represents the standard deviation from peak bone mass based on young healthy adult. A Z-score is used for diagnosis in premenopausal women, and for men under the age of 50. FINDINGS: RESULT LUMBAR SPINE L1 - L2 ??(EXCLUDE L3, L4) ??BMD: 1.233 g/cm2 T-Score: + 0.6 Z-Score: + 1.3 Change from prior in 2019: ??Increase 18.2%. RESULTS FEMUR Left femoral neck BMD: 0.897 g/cm2 T-Score: - 1.0 Z-Score: + 0.5 Change from prior in 2019: ??Increase 8.3%. Right femoral neck BMD: 0.892 g/cm2 T-Score: - 1.0 Z-Score: + 0.5 Change from prior in 2019: ??Increase 4.7%. Left hip BMD: 1.056 g/cm2 T-Score: + 0.4 Z-Score: + 1.7 Change from prior in 2019: ??Increase 7.4%. Right hip BMD: 1.027 g/cm2 T-Score: + 0.2 Z-Score: + 1.5 Change from prior in 2019: ??Increase 8.6%. WHO criteria: Normal: T-score at or above -1 SD Osteopenia: T-score between -1.1 and -2.4 SD Osteoporosis: T-score at or below -2.5 SD Claudia March MD DEXA * LIPID PANEL W REFLEX MEASURED LDL (03/07/2024 11:58 AM CDT) [facility] CHOLESTEROL,TOTAL 122 100 - 199 mg/dL 03/07/2024 9:00 PM [facility] Comment: Cholesterol, Total Reference Ranges Desirable <200 mg/dL Borderline 200-239 mg/dL High >=240 mg/dL TRIGLYCERIDES 143 <150 mg/dL 03/07/2024 9:00 PM T [facility] HDL CHOLESTEROL 44 >40 mg/dL 9:00 PM [facility] NON-HDL CHOLESTEROL 78 <145 mg/dl 03/07/2024 9:00 PM [facility] CHOL/HDL RATIO 2.77 <4.50 03/07/2024 9:00 PM [facility] LDL CHOLESTEROL 49 <=130 mg/dL 03/07/2024 9:00 PM [facility] VLDL CHOLESTEROL 29 <=30 mg/dL 03/07/2024 9:00 PM T [facility] PROVIDER ORDERED STATUS RANDOM 03/07/2024 9:00 PM [facility] Blood BLOOD SPECIMEN / Unknown Venipuncture / Unknown 03/07/2024 11:58 AM CDT 03/07/2024 12:00 PM CDT Claudia March MD CHEMISTRY [facility] [address] [place] [address], * (ABNORMAL) BASIC METABOLIC PANEL (03/07/2024 11:58 AM CDT) SODIUM 141 136 - 145 mmol/L 03/07/2024 9:00 PM [facility] POTASSIUM 4.7 3.5 - 5.1 mmol/L 03/07/2024 9:00 PM [facility] CHLORIDE 103 98 - 107 mmol/L 03/07/2024 9:00 PM [facility] CO2,TOTAL 26 22 - 29 mmol/L 03/07/2024 9:00 PM [facility] ANION GAP 12 5 - 18 03/07/2024 9:00 PM [facility] GLUCOSE 131(H) 70 - 99 mg/dL 03/07/2024 9:00 PM [facility] CALCIUM 9.7 8.8 - 10.2 mg/dL 03/07/2024 9:00 PM T [facility] BUN 22 8 - 23 mg/dL 03/07/2024 9:00 PM [facility] CREATININE 0.86 0.50 - 0.90 mg/dL 03/07/2024 9:00 PM [facility] BUN/CREAT RATIO 26(H) 10 - 20 9:00 PM [facility] eGFR 68(L) >90 mL/min/1.7 3m2 03/07/2024 9:00 PM CDT [facility] Comment:As of 2021, eG FR is calculated by the CKD-EPI creatinine equation without race adjustment. ??eGFR can be influenced by muscle mass, exercise, and diet. ??The reported eGFR is an estimation only and is only applicable if the renal function is stable. Blood BLOOD SPECIMEN / Unknown Venipuncture / Unknown 03/07/2024 11:58 AM CDT 03/07/2024 12:00 PM CDT Claudia March MD [facility] [address] [place] [id number], * SCAN-MAMMOGRAPHY REPORT (03/06/2024 12:00 AM CDT) Anatomical Region Laterality Modality Other Scanner OTHER from Last 3 Months Advance Directives Documents on File Type Date Recorded Patient Head Bone Grinder Expl anation Healthcare Directive 04/26/2012 12:50 PM H EALTH CARE DIRECTIVE, [facility], 04/04/12 * Full Code (Latest Code Status on File) Date Activated Date Inactivated Comments 06/05/2021 10:37 AM 06/09/2021 6:17 PM Question Answer Comments Code Status Discussion: Discussed * Full Code Date Activated Date Inactivated Comments 09/07/2017 12:25 AM 09/09/2017 4:16 PM Care Teams Shipping Manager Relationship Specialty Start Date End Date Claudia March MD [address] [place] [address] PCP - General Family Practice 05/03/24 Clinic, [place] [address] [facility] [address] [place] [address] 06/19/21 Scott Gongora MD [address] [facility] [address] [place] [address] Cardiovascular Disease 05/03/24
== END 2024-06-05 10:06 | disposition home or self-care (01) ==
LOC: INJ CL 10:06
PROVIDERS: PCP Family Medicine; Visit Provider Family Medicine
DX: M51.36 Other intervertebral disc degeneration, lumbar region (principal); M54.16 Radiculopathy, lumbar region
CPT/HCPCS: 62323; J0702; Q9966

== ENCOUNTER 2025-03-26 13:45 | Outpatient (CLI) | payer MEDICARE, BC, SELFPAY ==
--- OUTSIDE RECORDS SUMMARY | 2025-03-26 13:51 | XMS_ITS | Clinical Summary ---
Author Organization [employer] [facility] Address [address] [place] [address] Care Team Providers Care Spud Grader Name Role Phone Clinic, [facility] Unavailable [phone] Claudia March MD Primary Care Prov ider Scott Lux MD Unavailable [phone] Allergies Active Allergy Reactions Criticality Noted Date Comments Ibuprofen Intolerance-Can't Take 03/07/2024 Heart contraindicated Fexofenadine Other - Describe In Comment Field 11/21/2008 depression Phenylephrine Hcl Other - Describe In Comment Field 10/25/2024 Heart intolerance Adhesive Irritation At Patch Site Low 09/10/2021 Mentioned skin irritation with standard and sensitive electrode patches. Stated sensitive patches are worse. Medications srwudghz-wam-tx lic acid-vit K 400-80 mcg cap Take 1 Tablet by mouth once daily. 0 04/16/20 19 Active calcium carbonate (CALTRATE) 600 mg calcium (1,500 mg) tablet Take 600 mg by mouth once daily in the morning. 180 tablet 3 06/10/20 20 Active blood-glucose meterIndication s:Type 2 diabetes mellitus without complication, without long-term current use of insulin (HC) As directed. Dispense meter, test strips, lancets covered by pt ins. E11.9 NIDDM type II - Test 2 times/day. Reason: New diabetes 1 Each 06/15/20 21 Active loratadine (Claritin) 10 mg tablet Take 1 Tablet (10 mg) by mouth once daily. 0 07/20/20 21 Active melatonin 5 mg tab tablet Take 1 Tablet (5 mg) by mouth at bedtime if needed for Sleep. 0 11/23/19 23 Active propylene glycoL (Systane Complete) 0.6 % ophthalmic solutionIndicat ions:Dry eye Place into the eye(s). 0 11/23/19 23 Active zinc 50 mg tabletIndicatio ns:Dry eye Takes 1 tab (50 mg) 2 times a week on Tuesday and Fridays 0 11/23/19 23 Active sacubitril-vals shree (ENTRESTO 49 MG-51 MG TABLET) 49-51 mg tabletIndicatio ns:Chronic systolic congestive heart failure (HC) TAKE 1 TABLET BY MOUTH TWICE DAILY 180 Tablet 3 04/24/20 24 Active Farxiga 10 mg tabletIndicatio ns:Congestive heart failure, unspecified HF chronicity, unspecified heart failure type (HC) Take 1 Tablet (10 mg) by mouth once daily. 90 Tablet 5 05/29/20 24 Active diphenhydrAMINE (BENADRYL) 25 mg capsuleIndicati ons:Insomnia, idiopathic Take 1 Capsule (25 mg) by mouth every 4 hours if needed. 10/25/19 25 Active acetaminophen (TYLENOL EXTRA STRGTH) 500 mg tabletIndicatio ns:Insomnia, idiopathic Take 1 Tablet (500 mg) by mouth every 6 hours if needed (sleep). Max acetaminophen dose: 4000mg in 24 hrs. 10/25/19 25 Active trypsin/balsam raz/castor oil (OPTASE TOP) Apply topically to affected area(s) at bedtime if needed. Active triamcinolone 0.5 % ointmentIndicat ions:Rash Apply topically to affected area(s) three times daily. As needed 30 g 1 03/26/20 25 Active rosuvastatin 20 mg tabletIndicatio ns:Chronic systolic congestive heart failure (HC) Take 1 Tablet (20 mg) by mouth at bedtime. 90 Tablet 3 03/26/20 25 Active rivaroxaban 10 mg tabletIndicatio ns:Thrombophleb itis of superficial veins of left lower extremity Take 1 Tablet (10 mg) by mouth once daily with evening meal. 90 Tablet 3 03/26/20 25 Active nitroglycerin 0.4 mg sublingual tabletIndicatio ns:ASHD (arteriosclerot ic heart disease) Place 1 Tablet (0.4 mg) under the tongue every 5 minutes if needed for Chest Pain (Max 3 tablets daily. Call 911 if pain not resolved). 25 Tablet 03/26/20 25 Active metoprolol succinate 25 mg Sustained-Relea se tabletIndicatio ns:Acute systolic heart failure (HC) Take 1 Tablet (25 mg) by mouth once daily. 90 Tablet 3 03/26/20 25 Active furosemide 40 mg tabletIndicatio ns:Acute systolic heart failure (HC) Take 1 Tablet (40 mg) by mouth once daily in the morning. 90 Tablet 5 03/26/20 25 Active fluticasone (50 mcg per actuation) nasal solution (FLONASE)Indica tions:Sinusitis , unspecified chronicity, unspecified location Inhale 1 [place] in both nostrils once daily. 48 g 03/26/20 25 Active Breast ProsthesisIndic ations:History of breast cancer With 4 bras and prosthesis. For personal use. 1 Each 03/26/20 25 Active medication order composerIndicat ions:History of breast cancer Bra x 4 history of breast cancer right side 4 unit 03/26/20 25 Active cholecalciferol (VITAMIN D-3) 2,000 unit capsule Take 1 capsule by mouth once daily. 0 04/16/20 19 025 Discontin ued(*Cristina ent states no longer taking) Breast ProsthesisIndic ations:Primary cancer of right breast (HC) With 4 bras and prosthesis. For personal use. 4 Each 4 11/23/19 23 025 Discontin ued(Reord er (E-cancel not sent)) nitroglycerin (NITROSTAT) 0.4 mg sublingual tabletIndicatio ns:ASHD (arteriosclerot ic heart disease) Place 1 Tablet (0.4 mg) under the tongue every 5 minutes if needed for Chest Pain (Max 3 tablets daily. Call 911 if pain not resolved). 25 Tablet 11/23/19 23 025 Discontin ued(Reord er (E-cancel not sent)) furosemide (LASIX) 40 mg tabletIndicatio ns:Acute systolic heart failure (HC) Take 1 Tablet (40 mg) by mouth once daily in the morning. 90 Tablet 5 05/15/20 24 025 Discontin ued(Reord er (E-cancel not sent)) rivaroxaban (XARELTO) 10 mg tabletIndicatio ns:Thrombophleb itis of superficial veins of left lower extremity Take 1 Tablet (10 mg) by mouth once daily with evening meal. 90 Tablet 2 05/20/20 24 025 Discontin ued(Reord er (E-cancel not sent)) triamcinolone 0.5 % ointmentIndicat ions:Rash Apply topically to affected area(s) three times daily. As needed 30 g 1 07/31/20 24 025 Discontin ued(Reord er (E-cancel not sent)) rosuvastatin 20 mg tabletIndicatio ns:Chronic systolic congestive heart failure (HC) Take 1 Tablet (20 mg) by mouth at bedtime. 90 Tablet 2 01/11/20 25 025 Discontin ued(Reord er (E-cancel not sent)) metoprolol succinate 25 mg Sustained-Relea se tabletIndicatio ns:Acute systolic heart failure (HC) TAKE 1 TABLET(25 MG) BY MOUTH DAILY 90 Tablet 02/11/20 25 025 Discontin ued(Reord er (E-cancel not sent)) fluticasone (50 mcg per actuation) nasal solution (FLONASE)Indica tions:Sinusitis , unspecified chronicity, unspecified location Inhale 1 [place] in both nostrils once daily. 48 g 2 02/26/20 25 025 Discontin ued(Reord er (E-cancel not sent)) Breast ProsthesisIndic ations:History of breast cancer With 4 bras and prosthesis. For personal use. 4 Each 4 03/26/20 25 025 Discontin ued(Reord er (E-cancel not sent)) medication order composerIndicat ions:History of breast cancer Bra x 4 history of breast cancer right side 1 unit 03/26/20 25 025 Discontin ued(Reord er (E-cancel not sent)) Active Problems Problem Noted Date Diagnosed Date Stage 3a chronic kidney disease 03/26/2025 Type 2 diabetes mellitus wit hout complication, without long-term current use of insulin 11/23/2022 Coronary artery disease 08/14/2021 Mitral valve insufficiency 08/14/2021 History of breast cancer 06/15/2021 ASHD (arteriosclerotic heart disease) 06/09/2021 SOB (shortness of breath) 06/02/2021 Chronic systolic congestive heart failure 2020 Mitral valve prolapse 06/02/2021 Aortic valve stenosis 06/02/2021 Heart failure 04/28/2021 Aortic stenosis, moderate 03/06/2018 Overview (03/06/2018): Mild to Moderate See 09/02/17 Echocardiogram Final [...] chest wall 09/07/2017 Pneumonia 09/07/2017 Osteopenia 09/02/2014 Overview (09/02/2014): Aug 2014. Repeat 3-5 years Adenomatous colon polyp 10/09/2013 Overview (12/04/2018): Colonoscopy 10/2013 polyps repeat in 5 years Colonoscopy 12/2018 hyperplastic polyp, repeat in 5 years Pollen allergies 01/04/2012 Allergy, unspecified not elsewhere classified Overview (11/02/2007): mold, dust, tree pollen, rag weed, Other lymphedema 11/02/2007 Overview (11/02/2007): right side from mastectomy and lymphnode removal CHF (congestive heart failur e), NYHA class III, acute on chronic, systolic Resolved Problems Problem Noted Date Diagnosed Date Resolved Date Primary cancer of right breast 04/28/2021 06/15/2021 Abdominal bloating 06/06/2009 7 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 11/02/2007 09/07/2017 Overview (11/02/2007): rt side Encounters Date Type Department Care Team Description 03/26/2025 10:20 AM CDT Office Visit [facility] [address] [place] [address] Claudia March MD Medicare ANNUAL (subsequent) Visit (84 yo female) 03/26/2025 Travel 03/22/2025 Travel 02/22/2025 Refill [facility] [address] [place] [address] Claudia March MD Refill Request (Fluticasone (50 Mcg Per Actuation) Nasal) 02/09/2025 Refill [facility] [address] [place] [address] Claudia March MD Refill Request (Metoprolol Succinate) 01/08/2025 Refill [facility] [address] [place] [address] Claudia March MD Refill Request (Rosuvastatin) from Last 3 Months Immunizations Immunization Administration Dates Next Due COVID-19 vaccine ([employer] NTech 30mcg/0.3mL) 12YO+ BIVALENT PF, MDV 06/30/2022 COVID-19 vaccine (XGear-Bio NTech 30mcg/0.3mL) PF, MDV 12/09/2020,11/18/2020 Hepatitis A (Adult) 03/11/2006,08/24/2005 Influenza A (H1N1), Inactiva tra (Age >=3 Years) 08/26/2009,07/27/2009 Influenza, High-dose Inactivated 07/11/2024,07/03,07/07/2015 Influenza, High-dose Quadriv alent Inactivated 07/09/2022,07/08/2021,07/28/2020 Influenza, IIV3 (Age 6-35 mos) 07/05/2012,2009 Influenza, IIV3 (Age >=3 years) 07/07/2009,07/17,07/15/2004 Influenza, Inactivated IIV3 (Age 65+ Years) Preserv Free 06/08/2019,06/23/2017 Pneumococcal Poly,23-Valent (Pneumovax) 07/09/20 09,08/28/2003 Pneumococcal conj 13-Valent (Prevnar 13) 017 RSV, Recombinant ADJ Reconst ituted (Arexvy 120MCG/0.5mL) 06/28/2023 Td (Age >=7 Years) 04/11/2003,01/19/1994 Tdap 12/31/2022,01/04/2012 Typhoid (oral) 08/24/2005 Zoster (Shingrix-RZV, recombinant) 09/14/2019, Zoster (Zostavax-ZVL, live) 11/21/2008 Family History Medical History Relation Name Comments Stroke Brother Good Health Daughter Diabetes Father Stroke Father Alzheimer's disease Mother alzheime r's Hypertension Mother Osteoporosis Mother Stroke Mother Arthritis Sister 1 Christin RA Diabetes Sister 1 Christin Dementia Sister 2 Zaira vericose veins Good Health [...] Answer Date Recorded PHQ-2 TOTAL SCORE 0 03/26/2025 Social Connections Answer Date Recorded Do you often feel lonely or isolated from those around you? 0 03/22/2025 Financial Resource Strain Answer Date R ecorded Difficulty of Paying Living Expenses 3 03/22/2025 Difficulty of Paying Living Expenses Not on file 03/22/2025 Food Insecurity Answer Date Recorded Do you worry your food will run out before you are able to buy more? 1 03/22/2025 Transportation Needs Answer Date Record ed Does lack of transportation keep you from medica l appointments? 1 03/22/2025 Does lack of transportation keep you from work, meetings or getting things that you need? 1 03/22/2025 Housing Stability Answer Date Recorded What is your housing situation today? 1 03/22/2025 Utilities Answer Date Recorded Do you have trouble paying f or utilities (for example, heat, electricity, water, phone)? 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 Gender Identity Not on file Sexual Orientation Not on file Travel History Travel Start Travel End [place] 03/23/2025 03/23/2025 Obstetrics History Para Term AB IAB SAB Ectopic Multiple Livin g Live Births 2 2 2 Date Outcome GA Total Labor Labor/2nd/3rd Weight Sex Type Anes PTL Keren A1 A5 Name Clin Para Para Last Filed Vital Signs Vital Sign Reading Time Taken Comments Blood Pressure 101/69 03/26/2025 10:27 AM CDT Pulse 70 03/26/2025 10:27 AM CDT Temperature 36.7 C (98 F) 04/30/2024 8:51 AM CDT Respiratory Rate 18 06/15/2021 11:50 AM CDT Oxygen Saturation 94% 03/26/2025 10:27 AM CDT Inhaled Oxygen Concentration - - Weight 97.3 kg (214 lb 6.4 oz) 03/26/2025 10:27 AM CDT Height 157.5 cm (5' 2) 03/26/2025 10:27 AM CDT Body Mass Index 39.21 03/26/2025 10:27 AM CDT Plan of Treatment Upcoming Encounters Date Type Department Care Team (Late st Contact Info) Description 03/27/2025 1:00 PM CDT Nurse/Clinic Staff Only [facility] [address] [place] [address] Health Maintenance Due Date Last Done Comments COVID-19 vaccine series ( season) 2025 07/11/2024, 07/08/2023, 06/30/2022, Additional history exists BMI (ht and wt on same day) for age 18+ 03/26/2026 03/26/2025, 10/25/2024, 09/10/2024, Additional history exists Depression screening for age 12+ 03/26/2026 03/26/2025, 03/07/2024, 11/23/2022, Additional history exists Medicare Wellness for age 65+ 03/27/2026 03/26/2025, 03/07/2024, 11/23/2022, Additional history exists Tetanus booster 12/31/2032 12/31/2022, 04/0 12/2011, 04/11/2003, Additional history exists Pneumococcal series for age 50+ Completed 07/22/2017, 07/09/2009, 08/28/2003 Zoster (shingles) series for age 50+ Completed 09/14/2019, 06/08/2019, 11/21/2008 Tdap Completed 12/31/2022, 01/04/2012 RSV vaccine for adults or Completed 06/28/2023 DEXA/DXA scan for age 65+ Completed 2023, 06/07/2019, 08/22/2014, Additional history exists Influenza Vaccine Completed 07/11/2024, , 07/12/2018, Additional history exists Hepatitis B series for 19+ Aged Out N o longer eligible based on patient's age to complete this topic Procedures Procedure Name Priority Date/Time Associated Diagnosis Comments HEMOGLOBIN A1C MONITORING (POCT) Routine 03/26/2025 11:32 AM CDT Type 2 diabetes mellitus without complication, without long-term current use of insulin (HC) XR DXA BONE DENSITY 2 SITES AXIAL Routine 03/13/2024 9:48 AM CDT Post-menopausal from Last 3 Months or Most Recently Relevant to Health Maintenance Results * (ABNORMAL) HEMOGLOBIN A1C MONITORING (POCT) (03/26/2025 11:32 AM CDT) POC HEMOGLOBIN A1C 7.1(H) <6.0 % OF TOTAL HGB [facility] Comment: Any point of care results exhibiting inconsistency with the patient's clinical status should be repeated using a different testing method. Blood BLOOD SPECIMEN / Unknown 03/26/2025 11:32 AM CDT 03/26/2025 11:32 AM CDT Claudia March MD CHEMISTRY Fi nal Result [facility] [address] [place] [address], [facility] [address] [place] [address] * XR DXA BONE DENSITY 2 SITES [...] range. Repeat scan recommended in 3-5 years. Valentine Stafford PA-C [facility] 03/20/2024 Narrative 03/20/2024 1:28 PM CDT ===View-only below this line=== RESULT For Patients: Results are automatically released to your [facility] ([facility] account once available, in compliance with federal regulations. This means that you may see your results before your provider has had a chance to review them. Please allow 2-3 business days for your provider to comment on the results. XR DXA Bone Mineral Density (BMD) EXAM LOCATION: [facility] [address] [facility] [id number] PATIENT NAME: Niki Loyd DATE OF : 1940 EXAM DATE: 03/13/2024 REQUESTING PROVIDER: Claudia March MD GENDER AT : female HEIGHT: 5' 3 (03/07/2024) WEIGHT: 219 lb (03/07/2024) MENOPAUSAL STATUS: Postmenopausal RACE/ETHNICITY: White RISK FACTORS: Aromatase Inhibitors (Arimidex, etc.), Cancer Treatment, Family History of Osteoporosis, Family History of Hip Fracture (parental), and White Race CURRENT MEDICATION FOR BONE LOSS: Alendronate (Fosamax) INDICATION: Post-Menopause COMPARISON DATE(S): 2019 DXA scans are compared to prior studies for a patient only when the two (or more) studies were performed on the same scanner. It is not possible to compare data generated on one scanner to data from another because there are not standards in DXA equipment. This applies even if the two scanners are made by the same storage administrator. PROCEDURE: Dual-energy x-ray absorptiometry performed with routine technique. Reporting is completed in the form of a T-score. The T-score represents the standard deviation from peak bone mass based on young healthy adult. A Z-score is used for diagnosis in premenopausal women, and for men under the age of 50. FINDINGS: RESULT LUMBAR SPINE L1 - L2 (EXCLUDE L3, L4) BMD: 1.233 g/cm2 T-Score: + 0.6 Z-Score: + 1.3 Change from prior in 2019: Increase 18.2%. RESULTS FEMUR Left femoral neck BMD: 0.897 g/cm2 T-Score: - 1.0 Z-Score: + 0.5 Change from prior in 2019: Increase 8.3%. Right femoral neck BMD: 0.892 g/cm2 T-Score: - 1.0 Z-Score: + 0.5 Change from prior in 2019: Increase 4.7%. Left hip BMD: 1.056 g/cm2 T-Score: + 0.4 Z-Score: + 1.7 Change from prior in 2019: Increase 7.4%. Right hip BMD: 1.027 g/cm2 T-Score: + 0.2 Z-Score: + 1.5 Change from prior in 2019: Increase 8.6%. WHO criteria: Normal: T-score at or above -1 SD Osteopenia: T-score between -1.1 and -2.4 SD Osteoporosis: T-score at or below -2.5 SD Claudia March MD DEXA Fi nal Result from Last 3 Months or Most Recently Relevant to Health Maintenance Insurance MEDICARE PART B HB ONLY MEDICARE PART A HB ONLY [facility] BLUE MR PB ONLY [facility] BL[facility] HB ONLY Advance Directives Documents on File Type Date Recorded Patient Sports Broadcaster Expl anation Healthcare Directive 04/26/2012 12:50 PM H EALTH CARE DIRECTIVE, [facility], 04/04/12 * Full Code (Latest Code Status on File) Date Activated Date Inactivated Comments 06/05/2021 10:37 AM 06/09/2021 6:17 PM Question Answer Comments Code Status Discussion: Discussed * Full Code Date Activated Date Inactivated Comments 09/07/2017 12:25 AM 09/09/2017 4:16 PM Care Teams Spud Grader Relationship Specialty Start Date End Date Claudia March MD [address] [place] [address] PCP - General Family Practice 05/03/24 Clinic, [facility] [address] [place] [address] 06/19/21 Scott Lux MD [address] [facility] [address] [place] [address] Cardiovascular Disease 05/03/24
--- NOTE | 2025-03-26 14:00 | MM_ITS ---
Patient: ELEAZAR MCCAULEY Facility:?[facility] Patient ID:?[id number] Site Patient ID:?[id number]. Site :?1940 Study:?XRay-Breast 3D Stan SCREENING-03/26/2025 2:15:39 PM Ordering Physician:?Anca Taylor Final Report: INDICATION: UNILATERAL LEFT SCREENING MAMMOGRAM, ASYMPTOMATIC 84 Y/O FEMALE COMPARISON: 03/06/2024, 02/14/2023, 01/11/2022 TECHNIQUE: Digital mammogram in CC and MLO projections including computer-aided detection (CAD) and tomosynthesis. BREAST COMPOSITION: The breasts are heterogeneously dense, which may obscure small masses. FINDINGS: No suspicious findings. ASSESSMENT: BI-RADS 2 Benign RECOMMENDATION: Annual screening mammogram. A lay language report of this examination will be provided to the patient. Dictated by: Carlos Cisneros MD @ 03/28/2025 09:23:16 Signed by:?Carlos Cisneros MD @03/28/2025 9:23:16 AM (Electronic Signature)
--- OUTSIDE RECORDS SUMMARY | 2025-03-27 00:50 | XMS_ITS | Clinical Summary ---
Author Organization [facility] Address [address] [place] [address] Care Team Providers Care Electronic Assembler Group Leader Name Role Phone Clinic, [facility] Unavailable [phone] Claudia March MD Primary Care Prov ider Scott Lux MD Unavailable Allergies Active Allergy Reactions Criticality Noted Date Comments Ibuprofen Intolerance-Can't Take 03/07/2024 Heart contraindicated Fexofenadine Other - Describe In Comment Field 11/21/2008 depression Phenylephrine Hcl Other - Describe In Comment Field 10/25/2024 Heart intolerance Adhesive Irritation At Patch Site Low 09/10/2021 Mentioned skin irritation with standard and sensitive electrode patches. Stated sensitive patches are worse. Medications [id number] lic acid-vit K 400-80 mcg cap Take [...] , unspecified chronicity, unspecified location Inhale 1 [place] in both nostrils once daily. 48 g [...] , unspecified chronicity, unspecified location Inhale 1 [place]rington in both nostrils once daily. 48 g [...] Description 03/26/2025 10:20 AM CDT Office Visit [facility] [address] [place] [address] Claudia March MD Medicare ANNUAL (subsequent) Visit (84 yo female) 03/26/2025 Travel 03/22/2025 Travel 02/22/2025 Refill [facility] [address] [place] [address] Claudia March MD Refill Request (Fluticasone (50 Mcg Per Actuation) Nasal) 02/09/2025 Refill [facility] [address] [place] [address] Claudia March MD Refill Request (Metoprolol Succinate) 01/08/2025 Refill [facility] [address] [place] [address] Claudia March MD Refill Request (Rosuvastatin) from Last 3 Months Immunizations Immunization Administration Dates Next Due COVID-19 vaccine ([employer] NTech 30mcg/0.3mL) 12YO+ BIVALENT PF, MDV 06/30/2022 COVID-19 vaccine (Med Access-Bio NTech 30mcg/0.3mL) PF, MDV 12/09/2020,11/18/2020 Hepatitis A [...] on file Legal Sex Female 5:24 AM [employer] Gender Identity Not on file Sexual Orientation Not on file Travel History Travel Start Travel End [place] 03/23/2025 03/23/2025 Obstetrics History Para Term AB [...] 03/27/2025 1:00 PM CDT Nurse/Clinic Staff Only [facility] [address] [place] [address] Health Maintenance Due Date Last Done Comments [...] without long-term current use of insulin (HC) URINE ALBUMIN TO CREATININE RATIO, RANDOM Routine 03/26/2025 11:30 AM CDT Type 2 diabetes mellitus without complication, without long-term current use of insulin (HC) XR DXA BONE DENSITY 2 SITES AXIAL Routine 03/13/2024 9:48 AM CDT Post-menopausal from Last 3 Months or Most Recently Relevant to Health Maintenance Results * (ABNORMAL) HEMOGLOBIN A1C MONITORING (POCT) (03/26/2025 11:32 AM CDT) POC HEMOGLOBIN A1C 7.1(H) <6.0 % OF TOTAL HGB [facility] Comment: Any point of care results exhibiting inconsistency with the patient's clinical status should be repeated using a different testing method. Blood BLOOD SPECIMEN / Unknown 03/26/2025 11:32 AM CDT 03/26/2025 11:32 AM CDT Claudia March MD CHEMISTRY Fi nal Result Performing Organization Address City/[facility]/ZIP Co de Phone Number [facility] [address] [place] [address], [facility] [address] [place] [address] * URINE ALBUMIN TO CREATININE RATIO, RANDOM (03/26/2025 11:30 AM CDT) ALB RAND URINE <12.0 mg/L 03/26/2025 11:02 PM CDT [facility] CREATININE,URINE 0.33 g/L 03/26/20 11:02 PM CDT [facility] ALBUMIN TO CREATININE RATIO,RAND UR 03/26/2025 11:02 PM CDT [facility] Comment:Urine Albumin below measurement range, unable to calculate. Urine URINE SPECIMEN / Unknown Non-Blood / Unknown 03/26/2025 11:30 AM CDT 03/26/2025 11:30 AM CDT Narrative [facility] 03/26/2025 11:02 PM CDT If Albumin to Creatinine Ratio is elevated, consider the following: Elevations seen with incipient nephropathy associated with diabetes mellitus or hypertension. Stress, exercise,hematuria, and urinary tract infection may also produce elevated results. If clinically indicated, confirm with 24 Hour Albumin to Creatinine Ratio. Claudia March MD URINE Fi nal Result Performing Organization Address City/[facility]/ZIP Co de Phone Number [facility] [address] [place] [address], [place] * XR DXA BONE DENSITY 2 SITES [...] recommended in 3-5 years. Valentine Stafford PA-C [facility] 03/20/2024 Narrative 03/20/2024 1:28 PM CDT ===View-only below this line=== RESULT For Patients: Results are automatically released to your [facility] ([employer]) account once available, in compliance with federal regulations. This means that you may see your results before your provider has had a chance to review them. Please allow 2-3 business days for your provider to comment on the results. XR DXA Bone Mineral Density (BMD) EXAM LOCATION: [address] [address] PATIENT NAME: Niki Loyd DATE OF : [...] two scanners are made by the same supervisor mold shop. PROCEDURE: Dual-energy x-ray absorptiometry performed with routine [...] MEDICARE PART A HB ONLY BLUE [place]OSS [place] BLUE MR PB ONLY [place] BLUE HB ONLY Advance Directives Documents on File Type Date Recorded Patient Planer Stone Expl anation Healthcare Directive 04/26/2012 12:50 PM H EALT CARE DIRECTIVE, [facility], 04/04/12 * Full Code (Latest Code Status on File) Date Activated Date Inactivated Comments 06/05/2021 10:37 AM 06/09/2021 6:17 PM Question Answer Comments Code Status Discussion: Discussed * Full Code Date Activated Date Inactivated Comments 09/07/2017 12:25 AM 09/09/2017 4:16 PM Care Teams Electronic Assembler Group Leader Relationship Specialty Start Date End Date Claudia March MD Shady Dietrich [place] [address] PCP - General Family Practice 05/03/24 Clinic, [facility] [address] [place] [address] 06/19/21 Scott Lux MD [address] [facility] [address] [place] [address] Cardiovascular Disease 05/03/24
== END 2025-03-26 13:46 | disposition home or self-care (01) ==
PROVIDERS: PCP Family Medicine; Visit Provider Family Medicine
DX: Z12.31 Encounter for screening mammogram for malignant neoplasm of breast (principal); R92.333 Mammographic heterogeneous density, bilateral breasts
CPT/HCPCS: 77063; 77067

== ENCOUNTER 2025-04-19 10:11 | Outpatient (CLI) | payer MEDICARE, BC, SELFPAY ==
--- NOTE | 2025-04-19 11:33 | P.ANES_ITS ---
Anesthesia Charges Start Date/Time Anesthesia Start Date: 04/19/25 Anesthesia Start Time: 11:01 Stop Date/Time Anesthesia Stop Date: 04/19/25 Anesthesia Stop Time: 11:32 Coding CPT Codes CPT Codes: ANES LWR INTST NDSC NOS - 24850 ([id number]) P3 - PATIENT W/SEVERE SYS DISEASE, QK - WEIGHMASTER LEAD 2-4 CNCRNT ANES PROC, QX - LINEN ROOM SUPERVISOR SVC W/ MD MED DIRECTION
--- NOTE | 2025-04-19 11:33 | W.ANESCHARGE ---
Anesthesia Charges Start Date/Time Anesthesia Start Date: 04/19/25 Anesthesia Start Time: 11:01 Stop Date/Time Anesthesia Stop Date: 04/19/25 Anesthesia Stop Time: 11:32 Coding CPT Codes CPT Codes: ANES LWR INTST NDSC NOS - 30919 ([id number]) P3 - PATIENT W/SEVERE SYS DISEASE, QK - ORTHODONTIC LABORATORY TECHNICIAN 2-4 CNCRNT ANES PROC, QX - MARKET RESEARCH INTERVIEWER SVC W/ MD MED DIRECTION
--- NOTE | 2025-04-19 11:35 | W.ANESCHARGE ---
Anesthesia Charges Start Date/Time Anesthesia Start Date: 04/19/25 Anesthesia Start Time: 11:01 Stop Date/Time Anesthesia Stop Date: 04/19/25 Anesthesia Stop Time: 11:32 Summary Extremes of Age - Over 70 or under 1: MDA Coding CPT Codes CPT Codes: ANES LWR INTST NDSC NOS - [id number] ([id number]) QK - SERVICE TRANSFORMER REPAIR SUPERVISOR 2-4 CNCRNT ANES PROC, QX - VACCINATOR SVC W/ MD MED DIRECTION, P3 - PATIENT W/SEVERE SYS DISEASE Additional Codes: Summary - Extremes of Age - Over 70 or under 1: MDA ([id number])
== END 2025-04-19 10:12 | disposition home or self-care (01) ==
LOC: OP CLINIC 10:11
PROVIDERS: PCP Family Medicine; Visit Provider Internal Medicine Gastroenterology
DX: Z12.11 Encounter for screening for malignant neoplasm of colon (principal); Z86.0100 Personal history of colon polyps, unspecified; D12.2 Benign neoplasm of ascending colon
CPT/HCPCS: 00811; 45385; 88305; 99100; J2704